=== PATIENT | female | born 1965 | race Caucasian/White ===

== ENCOUNTER → 2024-02-13 16:15 | Outpatient (REF) | payer BC, SELFPAY ==
[2024-02-13 17:10] LABS: % Eosinophils 4.1 % (0-6); % Immature Granulocytes 0.2 % (0-0.5); % Lymphocytes 40.4 % (20.5-51.1); % Monocytes 8.4 % (1.7-9.3); % Neutrophils 45.9 % (42.2-75.2); Absolute Basophils 0.1 10^3/uL (0-0.2); Absolute Eosinophils 0.3 10^3/uL (0-0.7); Absolute Lymphocytes 2.4 10^3/uL (1.2-3.4); Absolute Monocytes 0.5 10^3/uL (0.1-0.6); Absolute Neutrophils 2.8 10^3/uL (1.4-6.5); Hematocrit 42.3 % (37.0-47.0); Hemoglobin 13.7 g/dL (12.0-16.0); Mean Corp Hgb Conc. 32.4 g/dL (33.0-37.0); Mean Corpuscular Volume 86.3 fL (81.0-99.0); Mean Platelet Volume 9.3 fL (7.4-10.4); Nucleated Red Blood Cells % 0 %; Platelet Count 273 10^3/uL (130-400); Red Cell Dist. Width 13.2 % (11.5-14.5)
[2024-02-13 17:23] LABS: Blood Urea Nitrogen 17 mg/dl (7-17); Calcium 9.8 mg/dl (8.4-10.2); Carbon Dioxide 31 mmol/L (22-30); Chloride 100 mmol/L (98-107); Glucose 89 mg/dl (70-99); Potassium 4.5 mmol/L (3.5-5.1); Sodium 137 mmol/L (135-145); eGFR > 60.00
== END ==
LOC: RCS 16:15
PROVIDERS: ATTENDING PHYSICIAN Orthopaedic Surgery Hand Surgery; FAMILY PHYSICIAN Family Medicine
DX: Z01.818 Encounter for other preprocedural examination (principal)
CPT/HCPCS: 36415; 80048; 85025; 93005

== ENCOUNTER 2024-05-20 06:03 | Day surgery (SDC) | payer BC, SELFPAY ==
[2024-05-20] VITALS (9 sets, daily range): BP systolic 122–147; BP diastolic 74–95; BMI 30.7
[2024-05-20] MEDS: CELEBREX 200 MG PO (06:12)
[2024-05-20] MEDS: TYLENOL 1000 MG PO (06:12)
[2024-05-20] MEDS: NORMOSOL-R 1000 IV (06:34)
[2024-05-20] MEDS: EMEND 40 MG PO (06:45)
== END 2024-05-20 10:08 | disposition home or self-care (01) ==
LOC: SDS 06:03
PROVIDERS: ATTENDING PHYSICIAN Orthopaedic Surgery Hand Surgery
DX: M75.102 Unspecified rotator cuff tear or rupture of left shoulder, not specified as traumatic (principal); S40.252A Superficial foreign body of left shoulder, initial encounter; X58.XXXA Exposure to other specified factors, initial encounter; Z91.81 History of falling; Z98.890 Other specified postprocedural states
CPT/HCPCS: 29827

== ENCOUNTER → 2025-05-31 22:00 | Outpatient (REF) | payer BC, SELFPAY | LOC: DHSLP 22:00 | PROVIDERS: ATTENDING PHYSICIAN Internal Medicine; FAMILY PHYSICIAN Family Medicine | DX: G47.33 Obstructive sleep apnea (adult) (pediatric) (principal) | CPT/HCPCS: 95800 ==

== ENCOUNTER → 2025-06-03 09:13 | Outpatient (REF) | payer BC, SELFPAY | LOC: RAD 09:13 | PROVIDERS: ATTENDING PHYSICIAN Physician Assistant Medical; FAMILY PHYSICIAN Family Medicine | DX: R00.0 Tachycardia, unspecified (principal); R05.1 Acute cough | CPT/HCPCS: 71046 ==

== ENCOUNTER 2025-07-03 19:06 | Emergency (ER) | payer BC, SELFPAY ==
[2025-07-03 19:14] VITALS: BP 143/102
[2025-07-03 19:39] LABS: Hematocrit 43.2 % (37.0-47.0); Hemoglobin 13.8 g/dL (12.0-16.0); Mean Corp Hgb Conc. 31.9 g/dL (33.0-37.0); Mean Corpuscular Volume 82.9 fL (81.0-99.0); Nucleated Red Blood Cells % 0 %; Platelet Count 258 10^3/uL (130-400); Red Cell Dist. Width 14.3 % (11.5-14.5)
[2025-07-03 19:59] LABS: ALT (SGPT) 29 U/L (0-35); AST (SGOT) 28 U/L (14-36); Albumin 4.9 g/dl (3.5-5.0); Alkaline Phosphatase 79 U/L (38-126); Blood Urea Nitrogen 25 mg/dl (7-17); Calcium 10.1 mg/dl (8.4-10.2); Carbon Dioxide 30 mmol/L (22-30); Chloride 104 mmol/L (98-107); Glucose 90 mg/dl (70-99); Potassium 4.2 mmol/L (3.5-5.1); Sodium 141 mmol/L (135-145); Total Protein 7.5 g/dl (6.3-8.2); eGFR > 60.00
[2025-07-03 20:08] LABS: Troponin I < 0.012 ng/ml
[2025-07-03 21:36] VITALS: BP 136/85
[2025-07-03 21:37] VITALS: BMI 32.6
[2025-07-03 22:00] VITALS: BP 125/77
--- NOTE | 2025-07-03 22:55 | ED.GENMED ---
History of Present Illness
General
Chief Complaint: Chest Pain
Source: patient and spouse
Exam Limitations: none
Time Seen by Provider: 07/03/25 21:57
Nursing documentation reviewed up to this point in time: agreed with
History of Present Illness
History of Present Illness:
59-year-old female presenting to the emergency department today with concerns of left-sided chest tightness started about an hour prior to arrival to the emergency department. Claims that symptoms started while she was dancing at a constitution party. She has
had some intermittent chest pain over the past month and has been following with a primary care doctor and has a pending assessment by cardiology. She has a slight associated shortness of breath. Denies any nausea vomiting or diaphoresis. Denies
any history of recent trauma surgery mobilization, blood clots, leg swelling.
Past History
Past History
ED Past Medical History: None
ED Past Surgical History: None
Review of Systems
Review of Systems
Allergies reviewed?: Yes
All Other Systems: ROS reviewed and negative except as documented in HPI and ROS
Phy Exam
Physical Exam
Physical Exam:
GENERAL: Alert , in no apparent distress
EYE: pupils equal and reactive
NECK: Supple, no significant adenopathy.
ENT: o/p clr, mmm.
CARDIAC: Regular rate and rhythm .
LUNGS: Clear breath sounds bilaterally, no acute respiratory distress, no wheezes/rales/rhonchi
ABDOMEN: Soft, without focal tenderness, no r/g, no cvat
NEUROLOGICAL: Alert and oriented, no focal neuro deficits
SKIN: Warm and dry, skin intact.
MUSCULOSKELETAL: No edema, well perfused.
PSYCH: Normal and appropriate interaction.
Scores
Heart Score for Chest Pain Patients
STEMI patient?: No
History: Slightly or Non-Suspicious
ECG: Normal
Age: >45 - <65 years
Risk Factors: 1 or 2 Risk Factors
Troponin: </= Normal Limit
Heart Score for Chest Pain Patients: 2
Heart Score Risk: 2.5% MACE over next 6 weeks
Course
Orders/Labs/Results
Orders:
Orders
07/03/25 19:19
Electrocardiogram (*1) Urgent
Reason for Study: Chest Pain
EKG- Treatment ONCE
07/03/25 19:31
Complete Blood Count/With Diff Urgent
Comprehensive Metabolic Panel Urgent
Troponin I Urgent
07/03/25 22:17
Chest [CR Chest - 2 Views ] Urgent
Comment:
Reason For Exam: cp left side
07/03/25 22:49
D-Dimer Urgent
07/03/25 22:54
Electrocardiogram (*1) Urgent
Reason for Study: Chest Pain
EKG- Treatment ONCE
Aspirin 325 mg PO NOW STA
07/03/25 23:08
Troponin I Urgent
Abnormal Lab Results
07/03/25
19:31
MCH 26.5 L pg
(27.0-31.0)
MCHC 31.9 L g/dL
(33.0-37.0)
Monocytes % 9.4 H %
(1.7-9.3)
BUN 25 H mg/dl
(7-17)
07/03/25 19:31
07/03/25 19:31
Vital Signs
Initial and Last Documented VS:
Initial Vital Signs
Temp Pulse Resp BP Pulse Ox
98.7 F 110 18 143/102 100
07/03/25 19:14 07/03/25 19:14 07/03/25 19:14 07/03/25 19:14 07/03/25 19:14
Last Documented Vital Signs
Temp Pulse Resp BP Pulse Ox
98.7 F 85 20 125/77 96
07/03/25 19:14 07/04/25 00:15 07/04/25 00:15 07/03/25 22:00 07/04/25 00:15
MDM/Problems Addressed
MDM/Problems Addressed:
59-year-old female presenting to the emergency with concerns of left-sided chest tightness starting roughly an hour prior to arrival. Initially was mildly tachycardic but improved without specific treatment. Vital signs normal during my
assessment. Labs unremarkable EKG without signs of ischemia chest x-ray normal. D-dimer negative very low risk for PE initial troponin negative. Second troponin negative. Very low risk for any acute pathology at this time. Stable for close
outpatient follow-up. Return precautions given.
*Pulse Oximetry
SaO2: 99
Oxygen Mode of Delivery: Room air
Patient hypoxic: no (96)
*Critical Care Note
Total Time (30-74mins, 75-104mins- exclusive of procedures): Not Applicable
ED Attending Note
-
Portions of this chart may have been created with voice recognition software.� Occasional wrong word or��sound alike� substitutions may have occurred due to the inherent limitations of voice recognition software.
Discharge Plan
Departure
Patient Disposition: Home (Routine Discharge)
Date of Disposition: 07/04/25
Time of Disposition: 00:28
Patient with high blood pressure during this ER visit?: No
Condition: Good
Covid-19: Not Applicable
Discharge Problem:
Chest pain
Instructions: Chest Pain DCA Follow Up
Prescriptions:
No Action
acetaminophen [Tylenol Extra Strength] 500 MG tablet
1,000 mg PO .Q6HR PRN (Reason: pain)
thyroid (pork) [[place] Thyroid] 60 MG tablet
90 mg PO DAILY
tramadol 50 mg Tablet
50 mg PO BID PRN (Reason: pain)
venlafaxine 100 mg Tablet
100 mg PO BID
rosuvastatin 5 mg Tablet
5 mg PO DAILY
Referrals:
Seble Valdes DO [Family Provider, Family Practice]
Activity Restrictions/Additional Instructions:
You came to the emergency department today with concerns of a chest tightness.. Reassuring assessment. Please follow closely with cardiology. Return for any worsening, new or concerning symptoms.
Interventions
Interventions:
*Risk Screen - Suicide Last Done: 07/03/25 19:18
*General Assessment Last Done: 07/03/25 21:37
*Neglect/Abuse Screening Last Done: 07/03/25 19:18
*ED- Fall Risk Assessment Last Done: 07/03/25 21:37
*ED COVID-19 Vaccine History Last Done: 07/03/25 21:37
ED- Cardiac Assessment Last Done: 07/03/25 21:37
Discharge Date and Time
Print Language: GREENLANDIC
[2025-07-03] MEDS: ASPIRIN 325 MG PO (23:07)
[2025-07-03 23:08] LABS: D-Dimer 0.35 ug/mlFEU (0.00-0.50)
[2025-07-03 23:44] LABS: Troponin I < 0.012 ng/ml
== END 2025-07-04 00:58 | disposition home or self-care (01) ==
LOC: EMR 19:06
PROVIDERS: Emergency Medicine; Physician Assistant; EMERGENCY PHYSICIAN Emergency Medicine; FAMILY PHYSICIAN Family Medicine
DX: R07.9 Chest pain, unspecified (principal)
CPT/HCPCS: 99284; 71046; 80053; 84484; 85025; 85379; 93005

== ENCOUNTER → 2025-07-21 10:42 | Outpatient (REF) | payer BC, SELFPAY | LOC: RCS 10:42 | PROVIDERS: ATTENDING PHYSICIAN Internal Medicine Cardiovascular Disease; FAMILY PHYSICIAN Family Medicine | DX: R07.89 Other chest pain (principal); R03.0 Elevated blood-pressure reading, without diagnosis of hypertension; Z82.49 Family history of ischemic heart disease and other diseases of the circulatory system; R00.0 Tachycardia, unspecified | CPT/HCPCS: 93017 ==

== ENCOUNTER → 2025-07-28 10:06 | Outpatient (REF) | payer BC, SELFPAY | LOC: RCS 10:06 | PROVIDERS: ATTENDING PHYSICIAN Internal Medicine Cardiovascular Disease; FAMILY PHYSICIAN Family Medicine | DX: R07.89 Other chest pain (principal); R03.0 Elevated blood-pressure reading, without diagnosis of hypertension; R00.0 Tachycardia, unspecified | CPT/HCPCS: 93306 ==